=== PATIENT | female | born 1985 | race Caucasian/White ===

== ENCOUNTER 2016-12-01 04:52 | Emergency (ER) | payer SELFPAY ==
[~2016-12-01] VITALS: Ht 170.2 cm; Wt 60.8 kg
[2016-12-01 05:00] VITALS: BP 125/66
[2016-12-01] MEDS ORDERED: Ketorolac 60mg Inj IM ONE (05:30)
--- NOTE | 2016-12-01 06:15 | Emergency Room Report ---
History of Present Illness General Chief Complaint: Back Pain-No Injury Source: Patient Present Illness HPI Pt with R shoulder and upper back pain. Severe tonight. Has been going on for several months. PMD gave trigger point injection without help. Suggested aleve. Also prescribed Medrol dose pack which she hasn't filled. Pain 7/10 burning and spasms, radiate to shoulder and R arm - slightly to neck, constant and worsened with movement. No fever, cough, anterior chest pain, leg swelling or pain. Patient took motrin 800 mg and flexeril before coming to ED. States had percocet and vicodin in distant past. Menses now. No depression. No dysuria. Allergies: Coded Allergies: SULFA (SULFONAMIDE ANTIBIOTICS) (Verified Allergy, Unknown, 12/01/16) Patient History Past Medical History: see triage record Social History: Reports: smoking Social History Narrative here with dog - moving to [place] Saturday Last Menstrual Period: November Reviewed Nursing Documentation: PMH: Agreed, PSxH: Agreed Review of Systems All Other Systems: negative except mentioned in HPI Physical Exam Vital Signs Date Time Temp Pulse Resp B/P Pulse Ox O2 Delivery O2 Flow Rate FiO2 12/01/16 04:54 98.1 98 16 122/63 98 Room Air Sp02 EP Interpretation: reviewed, normal General Appearance: well appearing, no apparent distress Head: normocephalic, atraumatic Eyes: bilateral eye PERRL, bilateral eye normal inspection ENT: hearing grossly normal, normal voice, moist mucus membranes Neck: full range of motion, supple, no bony tend Respiratory: chest non-tender - see below, lungs clear, normal breath sounds, other - muscle spasms R trapezius - painful and source of pain Musculoskeletal: digits/nails normal, gait/station normal, normal range of motion, no calf tenderness, other - muscle spasms R trapezius - TTP, recreates the pain Neurologic: alert, oriented x3, motor strength/tone normal, sensory intact, speech normal Psychiatric: mood/affect normal Skin: no rash Medical Decision Making Diagnostic Impression: Primary Impression: Muscle spasm ER Course Patient presents with non-traumatic R shoulder pain. Ddx: strain, spasm amongst others. Based on VS and exam not PE. Clinically, patient has painful muscle spasms. Clinical diagnosis not need imaging or labs. Focus on treatment with toradol. Improved with toradol. Patient stable for outpatient observation and treatment. Last Vital Signs Date Time Temp Pulse Resp B/P Pulse Ox O2 Delivery O2 Flow Rate FiO2 12/01/16 06:20 98.2 84 19 115/68 99 Room Air Status: improved Disposition: HOME, SELF-CARE Condition: Improved Scripts Naproxen* (NAPROSYN*) 375 Mg Tablet 375 MG ORAL TID, #14 TAB 0 Refills Prov: Coy Markham M.D. 12/01/16 Hydrocodone Bit/Acetaminophen 5-325* (NORCO 5-325*) 1 Each Tablet 1 TAB ORAL Q6H Y for For Pain, #12 TAB 0 Refills Prov: Coy Markham M.D. 12/01/16 Coy Markham M.D. Dec 01, 2016 06:15
[2016-12-01] MEDS ORDERED: NAPROXEN375 MG ORAL (06:18)
[2016-12-01] MEDS ORDERED: NORCO 5-325 TA1 EACH ORAL (06:18)
[2016-12-01 06:20] VITALS: BP 115/68
== END 2016-12-01 07:00 | disposition home or self-care (01) ==
LOC: EDBD 04:52 → EMR 07:00
DX: M62.838 Other muscle spasm (principal); M25.511 Pain in right shoulder; Z88.2 Allergy status to sulfonamides
CPT/HCPCS: 96372; 99284